=== PATIENT | female | born 1990 | race Caucasian/White ===

== ENCOUNTER 2020-02-15 20:42 | Emergency (ER) | payer OTHER, MEDICAID, SELFPAY ==
[2020-02-15 20:55] VITALS: BP 151/71; PULSE 79; RESP 15; TEMP 36.8; O2SAT 98; BMI 30.4
[2020-02-15 21:16] LABS: Appearance Urine UA CLOUDY; Bilirubin Urine UA NEGATIVE (NEGATIVE); Color Urine UA YELLOW; Glucose Urine UA NEGATIVE (Negative); Ketones Urine UA NEGATIVE (NEGATIVE); Leukocyte Esterase Urine UA 2+ (NEGATIVE); Nitrite Urine UA NEGATIVE (Negative); Occult Blood Urine UA TRACE-INTACT (Negative); Protein Urine UA TRACE (Negative); Specific Gravity Urine UA >=1.030 (1.000-1.035); Urobilinogen Urine UA 0.2 E.U./dL (0.2)
[2020-02-15 21:22] LABS: RBC Urine 1-5/HPF (0-5/HPF); Squamous Epithelial Cell Urine 5-10 /HPF (0-5/HPF); WBC Urine >100/HPF (0-5/HPF)
[2020-02-15 21:23] LABS: Amorphous Sediment Urine 1+; Bacteria Urine Moderate (10-30); Culture Indicated Urine Specimen Cultured; Mucus Urine 1+ (Negative)
[2020-02-15 22:44] LABS: Urine N gonorrhoeae NOT DETECTED
[2020-02-15 22:48] LABS: Urine Chlamydia NOT DETECTED
--- NOTE | 2020-02-25 05:18 | PC.NURSE ---
Pt had received letter to contact hospital about results. Called back. Was placed on Macrobid 100mg bid x5 days by Dr. Galilea Corbett. Perscription called to [facility] in [place].
== END 2020-02-15 21:43 | disposition left against medical advice (07) ==
LOC: ED 20:48
PROVIDERS: Emergency Provider Emergency Medicine
DX: Z11.3 Encounter for screening for infections with a predominantly sexual mode of transmission (principal)
CPT/HCPCS: 81001; 81025; 87077; 87086; 87186; 87491; 87591; 99282

== ENCOUNTER 2021-01-17 05:52 | Emergency (ER) | payer OTHER, MEDICAID, SELFPAY ==
[2021-01-17 06:10] VITALS: BP 133/99; PULSE 95; RESP 20; TEMP 37.1; O2SAT 97; BMI 35.6
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
[2021-01-17] MEDS: IBUPROFEN 400 MG TABLET 800 MG PO (06:35)
[2021-01-17 07:38] VITALS: BP 117/78; PULSE 95; RESP 18; O2SAT 99
== END 2021-01-17 07:38 | disposition home or self-care (01) ==
LOC: ED 07:34
PROVIDERS: Emergency Provider Emergency Medicine
DX: S92.902A Unspecified fracture of left foot, initial encounter for closed fracture (principal); V49.40XA Driver injured in collision with unspecified motor vehicles in traffic accident, initial encounter
CPT/HCPCS: 71046; 73630; 99284

== ENCOUNTER 2021-05-29 18:08 | Emergency (ER) | payer OTHER, MEDICAID, SELFPAY ==
[2021-05-29 18:12] VITALS: BP 129/94; PULSE 104; RESP 20; TEMP 36.9; O2SAT 98
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
[2021-05-29] MEDS: OXYCODONE/ACETAMINOPHEN 5/325 TABLET 1 TAB PO (18:39)
[2021-05-29] MEDS: IBUPROFEN 400 MG TABLET PO (18:40)
[2021-05-29] MEDS: LIDOCAINE 1% 20 ML 10 ML INJ (18:53)
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
[2021-05-29] MEDS: OXYCODONE/APAP 5/325 PREPACK 1 BOTTLE MISC (21:20)
[2021-05-29 21:29] VITALS: BP 117/73; PULSE 92; RESP 20; O2SAT 99
== END 2021-05-29 21:31 | disposition home or self-care (01) ==
PROVIDERS: Emergency Provider Emergency Medicine
DX: S02.2XXB Fracture of nasal bones, initial encounter for open fracture (principal); Y04.2XXA Assault by strike against or bumped into by another person, initial encounter
CPT/HCPCS: 13152; 70486; 99284

== ENCOUNTER 2022-02-22 22:30 | Emergency (ER) | payer OTHER, MEDICAID, SELFPAY ==
[2022-02-22 22:37] VITALS: BP 120/85; PULSE 103; RESP 18; TEMP 36.8; O2SAT 98; BMI 30.4
--- NOTE | 2022-02-22 22:53 | DI.RAD.S_ITS ---
PROCEDURE: XR HAND RT MIN 3V INDICATIONS: dog bite TECHNIQUE: 3 views of the hand(s) acquired. COMPARISON: None. FINDINGS: Bones: No fractures or dislocations. Carpal bones are normally aligned. No suspicious bony lesions. Soft tissues: No suspicious soft tissue calcifications. IMPRESSION: No fracture or foreign body seen. Dictated by: Charly Sánchez M.D. on 02/22/2022 at 23:31 Approved by: Charly Sánchez M.D. on 02/22/2022 at 23:31
[2022-02-22] MEDS: AMOXICILLIN/CLAV 875/125 MG 1 TAB PO (23:00)
[2022-02-22] MEDS: TET,DIPH,PERTUSS(ACELL),VAC/PF 0.5 ML SYRINGE IM (23:00)
--- NOTE | 2022-02-22 23:23 | ED.ANIMALBIT ---
HPI - Animal Bite General Chief Complaint: Animal Bite Stated Complaint: Bit by dog Time Seen by Provider: 02/22/22 22:37 Source: patient Mode of arrival: Ambulatory History of Present Illness HPI narrative: 31-year-old female daily smoker with noncontributory medical history presents with a chief complaint a dog bite to her right hand suffered 2 days ago. Per her report 2 dogs were fighting and she was attempting to separate them and she was bitten on her right hand in his 3 small puncture wounds. She admits that her pain, swelling and difficulty making a fist was worse yesterday than today. She denies any systemic complaints such as fever chills nor nausea or vomiting. She denies any red streaks, drainage or bleeding. She thinks her last tetanus shot was many years ago and she likely needs an update. Related Data Previous Rx's Medication Instructions Recorded cephalexin 500 mg capsule 500 mg PO TID #15 cap 05/29/21 amoxicillin 500 mg-potassium 1 tab PO TID #30 tab 02/22/22 clavulanate 125 mg tablet (Augmentin) Allergies Allergy/AdvReac Type Severity Reaction Status Date / Time No Known Drug Allergies Allergy Verified 05/29/21 18:39 Review of Systems Review of Systems Narrative: GENERAL: Denies chills, fatigue, malaise, fever, sweats. HEENT: Denies sinus pain, ear pain, sore throat, difficulty swallowing, dizziness. RESPIRATORY: Denies dyspnea, cough, wheezing, hemoptysis, sputum. CARDIOVASCULAR: Denies chest pain, palpitations, orthopnea, edema, GASTROINTESTINAL: Denies nausea, vomiting, abdominal pain, diarrhea, constipation, melena. : Denies dysuria, frequency, incontinence, hematuria, urinary retention. MUSCULOSKELETAL: See HPI SKIN: See HPI NEUROLOGIC: Denies weakness, headache, numbness, change in speech, confusion, seizures, incoordination. PSYCHIATRIC: No concerning psychosocial issues. 12 point review of systems is negative except for those stated above Patient History Medical History Patient denies medical problems Social History Smoking Status: Current every day smoker Smoking Status: Current every day smoker tobacco type: cigarettes Substance Use Type: does not use Exam Narrative Exam Narrative: GEN: AOx3 and in mild distress EYES: Pupils are equal, round, and reactive to light and accommodation. Extraoccular muscles are intact bilaterally. There is no subconjunctival hemorrhage or exudate. CHEST: Lungs are clear to auscultation bilaterally and free of wheezes, rales, or rhonchi. Heart rate is regular rhythm, there are no murmurs, clicks, rubs, or gallops. There is no chest wall tenderness. ABD: Abdomen is soft and nontender. There is no guarding or rebound. Bowel sounds are normal in all 4 quadrants. There is no mass or organomegaly. EXT: Full but painful range of motion of right hand and fingers, she is able to make a fist, there is the small puncture wound noticed on the dorsum of right index finger and also in the webspace and the 3rd 1 just to the left. No active bleeding or drainage, no fusiform swelling, finger stuck in flexion, pain with passive range of motion. No pain when palpating on the palmar surface, low suspicion for tenosynovitis, abscess or other significant underlying infection. SKIN: Warm, pink, and dry. No erythema or rash Initial Vital Signs Initial Vital Signs: Vital Signs Temperature 98.3 F 02/22/22 22:37 Pulse Rate 103 H 02/22/22 22:37 Respiratory Rate 18 02/22/22 22:37 Blood Pressure 120/85 02/22/22 22:37 Pulse Oximetry 98 02/22/22 22:37 Course Orders Ordered: ED Orders 02/22/22 22:53 XR hand RT min 3V Stat Discontinued Medications Amoxicillin/Clavulanate Potassium (Amoxicillin/Clav 875/125 Mg) 1 tab PO NOW ONE Stop: 02/22/22 22:54 Last Admin: 02/22/22 23:00 Dose: 1 tab Documented by: JAYDEN Diphtheria/Tetanus/Acell Pertussis (Tet,Diph,Pertuss(Acell),Vac/Pf 0.5 Ml Syringe) 0.5 ml IM .ONCE ONE Stop: 02/22/22 22:54 Last Admin: 02/22/22 23:00 Dose: 0.5 ml Documented by: JAYDEN Vital Signs Vital signs: Vital Signs - 8 hr 02/22/22 22:37 Temperature 98.3 F Pulse Rate 103 H Respiratory Rate 18 Blood Pressure 120/85 Pulse Oximetry 98 MDM - Animal Bite Imaging Data Extremity x-ray #1: Radiologist's Impression: Launch?Image [address] [address] XRay Report Signed Patient: Meryl Rodgers MR#: [id number] : 1990 Acct:[id number] Age/Sex: 31 / F Date of Service: 02/22/22 Loc: ED Accession Number: [id number] ?? Procedure: XR hand RT min 3V Ordering Provider: Douglas Patiño D.O. PROCEDURE:? XR HAND RT MIN 3V ? INDICATIONS:? dog bite ? TECHNIQUE:? 3 views of the hand(s) acquired.? ? COMPARISON:? None. ? FINDINGS:? ? Bones:? No fractures or dislocations.? Carpal bones are normally aligned.? No suspicious bony lesions.? ? Soft tissues:? No suspicious soft tissue calcifications.? ? ? IMPRESSION:? No fracture or foreign body seen. ? ? Dictated by: Charly Sánchez M.D. on 02/22/2022 at 23:31 ? ? Approved by: Charly Sánchez M.D. on 02/22/2022 at 23:31 ? Discharge Plan Departure Patient Disposition: Home Clinical Impression: Dog bite Instructions: DI for Dog Bite Activity Restrictions/Additional Instructions: *You have been diagnosed with [dog bite to right hand with early cellulitis. As we discussed, your x-ray is reassuring and there is no evidence of foreign body or fracture. *What to do: *Please continue to take your regular medications as directed. [ x] New medication prescriptions sent to your pharmacy: [ [facility] in [place]] [ ] New medication written as a paper prescription [ ] No new medications given *Please follow up with your primary care provider in 2-3 days, call for an appointment. Let them know you were seen in the Emergency Department and that we ask that you be seen in follow up. We will electronically transmit a record of today's note if your PCP is in our system *If you do not have a primary care provider please contact the [facility] Resource line at [phone]. They will ask some questions about your medical history and help get you set up with a doctor in the community. *Return to Emergency Department if you should have any new, worsening or concerning symptoms, such as [fever greater than 101 F, shaking chills, worsening pain, persistent vomiting or other bothersome symptoms] Prescriptions: New amoxicillin-pot clavulanate [Augmentin] 500-125 mg tablet 1 tab PO TID Qty: 30 0RF No Action cephalexin 500 mg capsule 500 mg PO TID Qty: 15 0RF Referrals: Miscellaneous,Doctor, MD [Primary Care Provider] -
== END 2022-02-22 23:30 | disposition home or self-care (01) ==
PROVIDERS: Emergency Provider Emergency Medicine
DX: S61.451A Open bite of right hand, initial encounter (principal); W54.0XXA Bitten by dog, initial encounter; Z23 Encounter for immunization
CPT/HCPCS: 73130; 90471; 99283; 90715

== ENCOUNTER 2022-11-16 04:32 | Emergency (ER) | payer OTHER, MEDICAID, SELFPAY ==
[2022-11-16 04:59] VITALS: BP 146/90; PULSE 90; RESP 17; TEMP 36.6; O2SAT 99; BMI 36.0
--- NOTE | 2022-11-16 05:08 | ED_ITS ---
HPI - Extremity Problem General Chief complaint: Extremity Problem,Nontraumatic Stated complaint: retaining water, knee pain Time Seen by Provider: 11/16/22 05:07 Source: patient Mode of arrival: Ambulatory History of Present Illness HPI Narrative: 32-year-old woman with a history of methamphetamine and opioid use disorder. Several months ago she went through a 30 day rehab and has been free of regular drugs since then. She comes in today complaining of increasing swelling in her lower extremities. She states she is gained at least 10 lb over the last number of months. She is having increasing exertional dyspnea, fatigue. For the 1st time she is actually holding down a job and feels like her life is beginning to turn back around. She notes she did get and a bite a couple of days ago and has a small abrasion to the left side of her nose. She is not complained of recent fevers, cough, chills, headaches, vomiting or diarrhea. Related Data Previous Rx's Medication Instructions Recorded cephalexin 500 mg capsule 500 mg PO TID #15 caps 05/29/21 amoxicillin 500 mg-potassium 1 tab PO TID #30 tabs 02/22/22 clavulanate 125 mg tablet (Augmentin) Allergies Allergy/AdvReac Type Severity Reaction Status Date / Time No Known Drug Allergies Allergy Verified 05/29/21 18:39 Review of Systems Review of Systems Narrative: Remainder of complete review of systems is otherwise unremarkable except for that included in the HPI. Patient History Medical History (Updated 11/16/22 @ 06:47 by Galilea Corbett MD) History of methamphetamine abuse Opioid use disorder Patient denies medical problems Social History Smoking Status: Current every day smoker Smoking Status: Current every day smoker tobacco type: cigarettes Substance Use Type: marijuana Exam Initial Vital Signs Initial Vital Signs: Vital Signs Temperature 97.8 F 11/16/22 04:59 Pulse Rate 90 11/16/22 04:59 Respiratory Rate 17 11/16/22 04:59 Blood Pressure 146/90 H 11/16/22 04:59 Pulse Oximetry 99 11/16/22 04:59 Oxygen Delivery Method 11/16/22 04:59 General: Chronically ill-appearing pale appears fatigued HEENT: Moist mucous membranes, normal sclera with reactive pupils, minor abrasion to the left ala Neck: No JVD, supple Respiratory: Lungs are clear to auscultation, no wheezing no rales no rhonchi. Full and symmetrical air movement Cardiac: Distant but Regular rate and rhythm no murmurs no bruits Abdomen: Soft, nontender, good bowel tones, no flank pain Skin: Pale, multiple bruises in various stages of healing, poor overall perfusion to arms and legs Neurologic: Grossly neurologically intact with no obvious asymmetries or abnormalities Extremities: No trauma, significant nonpitting edema to lower extremities and upper extremities with poor overall perfusion and poor capillary refill both upper and lower extremities Psych: Cooperative, appropriate insight and affect Course Orders Ordered: ED Orders 11/16/22 05:23 tox [Urine Drug Screen, Rapid] Stat 11/16/22 05:24 XR chest 1V Stat D Dimer Stat EKG-12 Lead Stat 11/16/22 05:35 Complete Blood Count AUTO DIFF Stat Comprehensive Metabolic Panel Stat Lactate (Lactic Acid) Stat Magnesium Stat NT-proBNP (BNP-Adult 18+) Stat Procalcitonin Stat Troponin I Stat Vital Signs Vital signs: Vital Signs - 8 hr 11/16/22 04:59 Temperature 97.8 F Pulse Rate 90 Respiratory Rate 17 Blood Pressure 146/90 H Pulse Oximetry 99 Oxygen Delivery Method Room Air MDM - Extremity (Nontraumatic) Lab Data 11/16/22 05:35 11/16/22 05:35 Labs: Lab Results 11/16/22 11/16/22 11/16/22 Range/Units 05:35 05:35 05:35 WBC 7.6 (4.5-11.0) X10^3/uL RBC 4.73 (4.0-5.2) X10^6/uL Hgb 12.8 (12.0-16.0) g/dL Hct 37.2 (36-46) % MCV 78.6 L (80-100) fL MCH 27.0 (26-34) PG MCHC 34.3 (30-36) % RDW 14.2 (11.6-14.8) % Plt Count 340 (150-400) X10^3/uL Neut % (Auto) 44.2 L (50-75) % Lymph % (Auto) 44.3 H (25-40) % [place] % (Auto) 6.9 (3-14) % Eos % (Auto) 3.8 (2-4) % Baso % (Auto) 0.8 (0-2) % Neut # (Auto) 3300 (2617-5342) /uL Lymph # (Auto) 3400 (6509-2195) /uL Douglas # (Auto) 500 (0-900) /uL Eos # (Auto) 300 (0-450) /uL Baso # (Auto) 100 (0-100) /uL Sodium 140 (137-145) mmol/L Potassium 4.0 (3.4-5.1) mmol/L Chloride 103 (98-107) mmol/L Carbon Dioxide 26 (22-32) mmol/L BUN 12 (7-17) mg/dL Creatinine 0.64 (0.52-1.04) mg/dL Estimated GFR > 60 (>60) mL/min BUN/Creatinine Ratio 18.8 (6-22) Glucose 75 (70-100) mg/dL Lactate 1.0 (0.7-2.1) mmol/L Calcium 8.7 (8.4-10.2) mg/dL Magnesium 2.0 (1.6-2.3) mg/dL Total Bilirubin 0.2 (0.2-1.3) mg/dL AST 35 (14-36) IU/L ALT 29 (<35) IU/L Alkaline Phosphatase 105 (38-126) U/L Troponin I < 0.012 (0.01-0.034) ng/mL NT-Pro-B Natriuret Pep 20 (<125) pg/mL Total Protein 7.7 (6.3-8.2) g/dL Albumin 4.2 (3.5-5.0) g/dL Globulin 3.5 (1.7-4.1) g/dL Albumin/Globulin Ratio 1.2 (1.0-2.8) Procalcitonin 0.03 (<0.5) ng/mL MDM Narrative Medical decision making narrative: CC: Swelling and knee pain. This is a new problem, uncertain prognosis with potential for significant systemic effects Complicating co-morbidities: In recovery from methamphetamine and opioid use disorder, clean for the last 7 months. Denies IV drug use was smoking drugs the time. Corroborating data: Data collected from: patient, Social determinants of health that may influence the patients condition: Difficult social situation, addiction recovery Medical records reviewed: No significant medical records for review Differential considered: Cardiomyopathy with edema secondary to congestive heart failure, liver failure, kidney failure, poor nutrition with low albumin, additional complications from prior opiate use disorder and methamphetamine use disorder. I do not suspect endocarditis at this time with absence of fevers overall. Exam documented above, pertinent findings include: Significant edema in the lower extremities with edema in the upper extremities almost to the point of anasarca Lab Test results independently reviewed as above. Pertinent findings: CBC is unremarkable Chemistries are reassuring Troponin is unremarkable Discussion: After discussion with concern for drug-induced cardiomyopathy and congestive heart failure, patient did note that she in fact has continued to use methamphetamine and fentanyl continuously over the last 7 months and has not had any significant period of sobriety. She requested to take some of her bags out to her car and I told her it was perfectly fine to leave them in the room until our workup was finished. She then requested that she be allowed to leave to smoke. Told her that she could certainly do this, strongly discouraged it and let her know that was against our policy. if she did choose to do this she would need to check back in. Unfortunately she did choose to leave against medical advice. She was able to walk out without obvious dyspnea or pain. I am still significantly concerned that she has a drug-induced cardiomyopathy with acute congestive heart failure. I believe she would benefit from an echocardiogram. I am reassured with normal blood work and lack of infection, acute coronary syndrome with normal liver and kidney function appreciated. Discharge Plan Departure Patient Disposition: Left Against Medical Advice Clinical Impression: Edema, Exertional dyspnea, Methamphetamine use disorder, severe, dependence, Opioid use disorder Prescriptions: No Action cephalexin 500 mg capsule 500 mg PO TID Qty: 15 0RF amoxicillin-pot clavulanate [Augmentin] 500-125 mg tablet 1 tab PO TID Qty: 30 0RF Referrals: Miscellaneous,DoctorMD [Primary Care Provider] - Stand Alone Forms: Against Medical Advice
--- NOTE | 2022-11-16 05:24 | DI.RAD.S_ITS ---
PROCEDURE: XR CHEST 1V INDICATIONS: Exertional dyspnea TECHNIQUE: One view of the chest was acquired. COMPARISON: [facility], CR, XR CHEST 2V, 01/17/2021, 6:16. FINDINGS: Surgical changes and devices: None. Lungs and pleura: Lungs are clear. No pleural effusions or pneumothorax. Mediastinum: Mediastinal contours appear normal. Heart size is normal. Bones and chest wall: No suspicious bony lesions. Overlying soft tissues appear unremarkable. IMPRESSION: No acute cardiopulmonary findings Note: Final report is concordant with preliminary interpretation by [email or web address], [employer] Approved by: Jarett Carson M.D. on 11/16/2022 at 8:14
--- NOTE | 2022-11-16 05:40 | PC.NURSE ---
Attempted iv x2, able to obtain blood but unable to advance iv catheter. during this time pt admitted to smoking both meth and perc 30 this morning before arrival.]
[2022-11-16 05:45] LABS: Add Manual Diff / Slide Review NO; Basophils Absolute Auto 100 /uL (0-100); Basophils Percent Auto 0.8 % (0-2); Eosinophils Absolute Auto 300 /uL (0-450); Eosinophils Percent Auto 3.8 % (2-4); Hematocrit 37.2 % (36-46); Hemoglobin 12.8 g/dL (12.0-16.0); Lymphocytes Absolute Auto 3400 /uL (1100-4500); Lymphocytes Percent Auto 44.3 % (25-40); Mean Corpuscular HGB Conc 34.3 % (30-36); Mean Corpuscular Volume 78.6 fL (80-100); Monocytes Absolute Auto 500 /uL (0-900); Monocytes Percent Auto 6.9 % (3-14); Neutrophils Absolute Auto 3300 /uL (1500-7000); Neutrophils Percent Auto 44.2 % (50-75); Platelet Count 340 X10^3/uL (150-400); Red Blood Cell Count 4.73 X10^6/uL (4.0-5.2); Red Cell Distribution Width 14.2 % (11.6-14.8); White Blood Cell Count 7.6 X10^3/uL (4.5-11.0)
[2022-11-16 05:57] LABS: Alanine Aminotransferase 29 IU/L (<35); Albumin 4.2 g/dL (3.5-5.0); Albumin Globulin Ratio 1.2 (1.0-2.8); Alkaline Phosphatase 105 U/L (38-126); Aspartate Aminotransferase 35 IU/L (14-36); BUN Creatinine Ratio 18.8 (6-22); Bilirubin Total 0.2 mg/dL (0.2-1.3); Blood Urea Nitrogen 12 mg/dL (7-17); Calcium 8.7 mg/dL (8.4-10.2); Carbon Dioxide 26 mmol/L (22-32); Chloride 103 mmol/L (98-107); Estimated Glomerular Filt Rate > 60 mL/min (>60); Globulin 3.5 g/dL (1.7-4.1); Glucose 75 mg/dL (70-100); HEMOLYSIS 22 (0-50); Sodium 140 mmol/L (137-145); Total Protein 7.7 g/dL (6.3-8.2)
[2022-11-16 06:09] LABS: NT-proBNP (BNP-Adult 18+) 20 pg/mL (<125); Troponin I < 0.012 ng/mL (0.01-0.034)
[2022-11-16 06:13] LABS: Procalcitonin 0.03 ng/mL (<0.5)
--- NOTE | 2022-11-16 06:27 | PC.NURSE ---
Pt requests to leave dept to smoke a cigarette. upon learning that this was against policy, pt eloped.
== END 2022-11-16 07:11 | disposition left against medical advice (07) ==
PROVIDERS: Emergency Provider Emergency Medicine
DX: R22.43 Localized swelling, mass and lump, lower limb, bilateral (principal); R06.00 Dyspnea, unspecified
CPT/HCPCS: 71045; 80053; 83605; 83735; 83880; 84145; 84484; 85025; 99281

== ENCOUNTER 2022-12-25 20:36 | Emergency (ER) | payer OTHER, MEDICAID, SELFPAY | END 2022-12-25 21:35 | disposition left against medical advice (07) | PROVIDERS: Emergency Provider Emergency Medicine | DX: R60.9 Edema, unspecified (principal) ==

== ENCOUNTER 2023-01-01 03:32 | Emergency (ER) | payer OTHER, MEDICAID, SELFPAY ==
[2023-01-01 03:40] VITALS: BP 142/88; PULSE 107; RESP 17; TEMP 36.9; O2SAT 97; BMI 43.4
--- NOTE | 2023-01-01 03:43 | ED_ITS ---
HPI - Extremity Problem General Chief complaint: Extremity Problem,Nontraumatic Stated complaint: swollen feet, fatigue, massive weight gain Time Seen by Provider: 01/01/23 03:43 History of Present Illness HPI Narrative: 32-year-old female smoker with history of methamphetamine use and opioid use including both smoking and injecting presents with a chief complaint of significant weight gain over the past few months. She states that she has gained as much as 80 lb over the past few months and notes such significant swelling in her lower extremities and feet that she has a hard time standing forward entire shift at work. She states that she becomes short of breath when she walks minimal distance and is unable to lay flat because she becomes so short of breath. On occasion she gets chest pain with exertion that seems to improve with rest or with leaning forward. She is had no dizziness, weakness or lightheadedness. She denies fever or chills. She denies nausea, vomiting or diarrhea. Related Data Previous Rx's Medication Instructions Recorded cephalexin 500 mg capsule 500 mg PO TID #15 caps 05/29/21 amoxicillin 500 mg-potassium 1 tab PO TID #30 tabs 02/22/22 clavulanate 125 mg tablet (Augmentin) furosemide 20 mg tablet (Lasix) 20 mg PO DAILY #20 tabs 01/01/23 Allergies Allergy/AdvReac Type Severity Reaction Status Date / Time No Known Drug Allergies Allergy Verified 05/29/21 18:39 Review of Systems Review of Systems Narrative: GENERAL: Denies chills, fatigue, malaise, fever, sweats. HEENT: Denies sinus pain, ear pain, sore throat, difficulty swallowing, dizziness. RESPIRATORY: See HPI CARDIOVASCULAR: See HPI, GASTROINTESTINAL: Denies nausea, vomiting, abdominal pain, diarrhea, constipation, melena. : Denies dysuria, frequency, incontinence, hematuria, urinary retention. MUSCULOSKELETAL: denies weakness, joint pain, or bony pain SKIN: Denies rash, skin lesions, or other NEUROLOGIC: Denies weakness, headache, numbness, change in speech, confusion, seizures, incoordination. PSYCHIATRIC: No concerning psychosocial issues. 12 point review of systems is negative except for those stated above Patient History Medical History History of methamphetamine abuse Opioid use disorder Patient denies medical problems Social History Smoking Status: Current every day smoker Smoking Status: Current every day smoker tobacco type: cigarettes Substance Use Type: marijuana Exam Narrative Exam Narrative: GENERAL: [32] year old patient appears stated age. Appears chronically ill HEAD: Atraumatic. Normocephalic. EYES: Pupils equal round and reactive. Extraocular motions intact. No scleral icterus. No injection or drainage. ENT: Nose without bleeding, purulent drainage. Throat without erythema, tonsillar hypertrophy or exudate. Airway patent. NECK: Trachea midline. Non tender CARDIOVASCULAR: Regular rate and rhythm without murmurs, gallops, or rubs. RESPIRATORY: Clear to auscultation. Breath sounds equal bilaterally. No wheezes, rales, or rhonchi. GASTROINTESTINAL: Abdomen soft, non-tender, nondistended. EXTREMITIES: 2+ pitting edema bilateral lower extremities BACK: Nontender without deformity or crepitance. No flank tenderness. NEURO: AOx3. SKIN: No rash or erythema of visible areas Initial Vital Signs Initial Vital Signs: Vital Signs Temperature 98.5 F 01/01/23 03:40 Pulse Rate 107 H 01/01/23 03:40 Respiratory Rate 17 01/01/23 03:40 Blood Pressure 142/88 H 01/01/23 03:40 Pulse Oximetry 97 01/01/23 03:40 Oxygen Delivery Method Room Air 01/01/23 03:40 Course Orders Ordered: Discontinued Medications Furosemide (Furosemide 40 Mg/4 Ml Vial) 40 mg IV NOW ONE Stop: 01/01/23 05:54 Last Admin: 01/01/23 06:04 Dose: 40 mg Documented By: LATHA Nicotine (Nicotine 21 Mg Patch) 21 mg TOP NOW ONE Stop: 01/01/23 05:00 Vital Signs Vital signs: Vital Signs - 8 hr 01/01/23 03:40 Temperature 98.5 F Pulse Rate 107 H Respiratory Rate 17 Blood Pressure 142/88 H Pulse Oximetry 97 Oxygen Delivery Method Room Air MDM - Extremity (Nontraumatic) Lab Data 01/01/23 04:50 01/01/23 04:50 Labs: Lab Results 01/01/23 01/01/23 01/01/23 Range/Units 04:50 04:50 04:50 WBC 11.7 H (4.5-11.0) X10^3/uL RBC 4.83 (4.0-5.2) X10^6/uL Hgb 12.7 (12.0-16.0) g/dL Hct 38.1 (36-46) % MCV 78.9 L (80-100) fL MCH 26.3 (26-34) PG MCHC 33.3 (30-36) % RDW 14.3 (11.6-14.8) % Plt Count 357 (150-400) X10^3/uL Neut % (Auto) 68.1 (50-75) % Lymph % (Auto) 22.8 L (25-40) % [place] % (Auto) 5.9 (3-14) % Eos % (Auto) 2.6 (2-4) % Baso % (Auto) 0.6 (0-2) % Neut # (Auto) 8000 H (5352-1055) /uL Lymph # (Auto) 2700 (5551-7815) /uL [place] # (Auto) 700 (0-900) /uL Eos # (Auto) 300 (0-450) /uL Baso # (Auto) 100 (0-100) /uL PT 11.5 (10.1-12.7) SECONDS INR 1.0 (0.9-1.3) Sodium 136 L (137-145) mmol/L Potassium 3.8 (3.4-5.1) mmol/L Chloride 102 (98-107) mmol/L Carbon Dioxide 27 (22-32) mmol/L BUN 10 (7-17) mg/dL Creatinine 0.64 (0.52-1.04) mg/dL Estimated GFR > 60 (>60) mL/min BUN/Creatinine Ratio 15.6 (6-22) Glucose 98 (70-100) mg/dL Lactate (0.7-2.1) mmol/L Calcium 8.7 (8.4-10.2) mg/dL Magnesium 1.9 (1.6-2.3) mg/dL Total Bilirubin 0.3 (0.2-1.3) mg/dL AST 26 (14-36) IU/L ALT 23 (<35) IU/L Alkaline Phosphatase 105 (38-126) U/L Total Creatine Kinase 127 (30-135) U/L CK-MB (CK-2) 1.71 (<2.37) ng/mL CK-MB (CK-2) Rel Index 1.3 L (1.5-5.0) % Troponin I < 0.012 (0.01-0.034) ng/mL NT-Pro-B Natriuret Pep 18 (<125) pg/mL Total Protein 7.4 (6.3-8.2) g/dL Albumin 4.0 (3.5-5.0) g/dL Globulin 3.4 (1.7-4.1) g/dL Albumin/Globulin Ratio 1.2 (1.0-2.8) Lipase 77 (23-300) U/L U Opiates 300ng/mL cut (Negative) Ur Oxycodone Screen (Negative) Urine Methadone Screen (Negative) Ur Barbiturates Screen (Negative) U Tricyclic Antidepress (Negative) Ur Phencyclidine Scrn (Negative) Ur Amphetamines Screen (Negative) U Methamphetamines Scrn (Negative) Ur MDMA Scrn (Ecstasy) (Negative) U Benzodiazepines Scrn (Negative) Urine Cocaine Screen (Negative) U Marijuana (THC) Screen (Negative) 01/01/23 01/01/23 Range/Units 04:50 07:40 WBC (4.5-11.0) X10^3/uL RBC (4.0-5.2) X10^6/uL Hgb (12.0-16.0) g/dL Hct (36-46) % MCV (80-100) fL MCH (26-34) PG MCHC (30-36) % RDW (11.6-14.8) % Plt Count (150-400) X10^3/uL Neut % (Auto) (50-75) % Lymph % (Auto) (25-40) % [place] % (Auto) (3-14) % Eos % (Auto) (2-4) % Baso % (Auto) (0-2) % Neut # (Auto) (5970-4313) /uL Lymph # (Auto) (5562-5653) /uL [place] # (Auto) (0-900) /uL Eos # (Auto) (0-450) /uL Baso # (Auto) (0-100) /uL PT (10.1-12.7) SECONDS INR (0.9-1.3) Sodium (137-145) mmol/L Potassium (3.4-5.1) mmol/L Chloride (98-107) mmol/L Carbon Dioxide (22-32) mmol/L BUN (7-17) mg/dL Creatinine (0.52-1.04) mg/dL Estimated GFR (>60) mL/min BUN/Creatinine Ratio (6-22) Glucose (70-100) mg/dL Lactate 1.2 (0.7-2.1) mmol/L Calcium (8.4-10.2) mg/dL Magnesium (1.6-2.3) mg/dL Total Bilirubin (0.2-1.3) mg/dL AST (14-36) IU/L ALT (<35) IU/L Alkaline Phosphatase (38-126) U/L Total Creatine Kinase (30-135) U/L CK-MB (CK-2) (<2.37) ng/mL CK-MB (CK-2) Rel Index (1.5-5.0) % Troponin I (0.01-0.034) ng/mL NT-Pro-B Natriuret Pep (<125) pg/mL Total Protein (6.3-8.2) g/dL Albumin (3.5-5.0) g/dL Globulin (1.7-4.1) g/dL Albumin/Globulin Ratio (1.0-2.8) Lipase (23-300) U/L U Opiates 300ng/mL cut Negative (Negative) Ur Oxycodone Screen Negative (Negative) Urine Methadone Screen Negative (Negative) Ur Barbiturates Screen Negative (Negative) U Tricyclic Antidepress Negative (Negative) Ur Phencyclidine Scrn Negative (Negative) Ur Amphetamines Screen Positive H (Negative) U Methamphetamines Scrn Positive H (Negative) Ur MDMA Scrn (Ecstasy) Negative (Negative) U Benzodiazepines Scrn Negative (Negative) Urine Cocaine Screen Negative (Negative) U Marijuana (THC) Screen Negative (Negative) Urine Dip Bedside Urine Glucose Negative Bedside Urine Bilirubin - Negative Bedside Urine Ketone - Negative Urine Specific [place] 1.015 Bedside Urine Occult Blood - Negative Bedside Urine pH 6.0 Bedside Urine Protein - Negative Bedside Urine Urobilinogen - Negative Bedside Urine Nitrite - Negative Bedside Urine Leukocytes - Negative Esterase MDM Narrative Medical decision making narrative: [32] year old patient presents with weight gain and swelling of her lower ex tremities Multiple etiologies for patient's symptoms considered including, but not limited to: [Heart failure, renal failure, liver failure versus other] Prior Charts reviewed in our EMR Primary Historian: patient Labs reviewed and interpreted by myself: H&H, electrolytes, renal function and LFTs within normal Imaging reviewed: No acute process Patient's symptoms improved over duration of stay with above-stated therapies. Findings and discharge diagnosis discussed with patient/family followed by verbalization of understanding Return precautions discussed with patient/family whom verbalize understanding of diagnosis and plan Discharge Plan Departure Patient Disposition: Home Clinical Impression: Lower extremity edema Instructions: DI for Dependent Edema Activity Restrictions/Additional Instructions: *You have been diagnosed with [anasarca, particularly lower extremity edema in the absence of any significant lab abnormalities.] *What to do: *Please continue to take your regular medications as directed. [x ] New medication prescriptions sent to your pharmacy: [ [facility]] [ ] New medication written as a paper prescription [ ] No new medications given *Please follow up with your primary care provider in 2-3 days, call for an appointment. Let them know you were seen in the Emergency Department and that we ask that you be seen in follow up. We will electronically transmit a record of today's note if your PCP is in our system *If you do not have a primary care provider please contact the [facility] Resource line at [phone]. They will ask some questions about your medical history and help get you set up with a doctor in the community. *Return to Emergency Department if you should have any new, worsening or concerning symptoms, such as [fever greater than 101 F, shaking chills, worsening pain, persistent vomiting or other bothersome symptoms] Prescriptions: New furosemide [Lasix] 20 mg tablet 20 mg PO DAILY Qty: 20 0RF No Action cephalexin 500 mg capsule 500 mg PO TID Qty: 15 0RF amoxicillin-pot clavulanate [Augmentin] 500-125 mg tablet 1 tab PO TID Qty: 30 0RF Stand Alone Forms: Patient Portal/API
--- NOTE | 2023-01-01 04:04 | DI.RAD.S_ITS ---
PROCEDURE: XR CHEST 1V INDICATIONS: fatigue, SOB TECHNIQUE: One view of the chest was acquired. COMPARISON: [facility], CR, XR CHEST 1V, 11/16/2022, 5:25. FINDINGS: Surgical changes and devices: None. Lungs and pleura: Lungs are clear. No pleural effusions or pneumothorax. Mediastinum: Mediastinal contours appear normal. Heart size is normal. Bones and chest wall: No suspicious bony lesions. Overlying soft tissues appear unremarkable. IMPRESSION: Stable radiographic evaluation of the chest without acute cardiopulmonary abnormalities or focal airspace disease. No significant discrepancy with the hourly shift radiology preliminary report. Dictated by: Mendez Singh M.D. on 01/01/2023 at 7:40 Approved by: Mendez Singh M.D. on 01/01/2023 at 7:41
[2023-01-01 05:03] LABS: Add Manual Diff / Slide Review NO; Basophils Absolute Auto 100 /uL (0-100); Basophils Percent Auto 0.6 % (0-2); Eosinophils Absolute Auto 300 /uL (0-450); Eosinophils Percent Auto 2.6 % (2-4); Hematocrit 38.1 % (36-46); Hemoglobin 12.7 g/dL (12.0-16.0); Lymphocytes Absolute Auto 2700 /uL (1100-4500); Lymphocytes Percent Auto 22.8 % (25-40); Mean Corpuscular HGB Conc 33.3 % (30-36); Mean Corpuscular Hemoglobin 26.3 PG (26-34); Mean Corpuscular Volume 78.9 fL (80-100); Monocytes Absolute Auto 700 /uL (0-900); Monocytes Percent Auto 5.9 % (3-14); Neutrophils Absolute Auto 8000 /uL (1500-7000); Neutrophils Percent Auto 68.1 % (50-75); Platelet Count 357 X10^3/uL (150-400); Red Blood Cell Count 4.83 X10^6/uL (4.0-5.2); Red Cell Distribution Width 14.3 % (11.6-14.8); White Blood Cell Count 11.7 X10^3/uL (4.5-11.0)
[2023-01-01 05:09] LABS: Prothrombin Time 11.5 SECONDS (10.1-12.7)
[2023-01-01 05:12] LABS: Lactate (Lactic Acid) 1.2 mmol/L (0.7-2.1)
[2023-01-01 05:13] LABS: Alanine Aminotransferase 23 IU/L (<35); Albumin Globulin Ratio 1.2 (1.0-2.8); Alkaline Phosphatase 105 U/L (38-126); Aspartate Aminotransferase 26 IU/L (14-36); BUN Creatinine Ratio 15.6 (6-22); Bilirubin Total 0.3 mg/dL (0.2-1.3); Blood Urea Nitrogen 10 mg/dL (7-17); Calcium 8.7 mg/dL (8.4-10.2); Carbon Dioxide 27 mmol/L (22-32); Chloride 102 mmol/L (98-107); Creatine Kinase 127 U/L (30-135); Estimated Glomerular Filt Rate > 60 mL/min (>60); Globulin 3.4 g/dL (1.7-4.1); Glucose 98 mg/dL (70-100); HEMOLYSIS < 15 (0-50); Lipase 77 U/L (23-300); Magnesium 1.9 mg/dL (1.6-2.3); Potassium 3.8 mmol/L (3.4-5.1); Sodium 136 mmol/L (137-145); Total Protein 7.4 g/dL (6.3-8.2)
[2023-01-01 05:25] LABS: NT-proBNP (BNP-Adult 18+) 18 pg/mL (<125); Troponin I < 0.012 ng/mL (0.01-0.034)
[2023-01-01 05:28] LABS: CKMB % Relative Index 1.3 % (1.5-5.0); Creatine Kinase MB 1.71 ng/mL (<2.37)
[2023-01-01] MEDS: FUROSEMIDE 40 MG/4 ML VIAL IV (06:04)
[2023-01-01 07:56] LABS: Ur Creatinine Normal (Normal); Ur Specific Gravity Normal (Normal); Urine pH Normal (Normal)
[2023-01-01 07:57] LABS: UR Morphine/Opiate cutoff 300 Negative (Negative); Urine Cocaine Negative (Negative); Urine Tetrahydrocannabinol Negative (Negative)
[2023-01-01 07:58] LABS: Urine Amphetamines Positive (Negative); Urine Barbiturates Negative (Negative); Urine Benzodiazepines Negative (Negative); Urine MDMA Negative (Negative); Urine Methadone Negative (Negative); Urine Methamphetamines Positive (Negative); Urine Oxycodone Negative (Negative); Urine Phencyclidine Negative (Negative); Urine Tricyclic Antidepressant Negative (Negative)
[2023-01-01 08:15] VITALS: BP 111/57; PULSE 94; RESP 17; O2SAT 97
== END 2023-01-01 08:16 | disposition home or self-care (01) ==
PROVIDERS: Emergency Provider Emergency Medicine
DX: R60.0 Localized edema (principal); R06.02 Shortness of breath; R07.9 Chest pain, unspecified
CPT/HCPCS: 36415; 71045; 80053; 80305; 81003; 82550; 82553; 83605; 83690; 83735; 83880; 84484; 85025; 85610; 87040; 96374; 99284; J1940

== ENCOUNTER 2025-03-11 19:08 | Emergency (ER) | payer OTHER, MEDICAID, SELFPAY ==
[2025-03-11 19:34] VITALS: BP 112/82; PULSE 100; RESP 18; TEMP 36.2; O2SAT 99; BMI 38.2
== END 2025-03-11 21:12 | disposition left against medical advice (07) ==
PROVIDERS: Emergency Provider Emergency Medicine
CPT/HCPCS: 99281